=== PATIENT | female | born 1930 | race Caucasian/White ===

== ENCOUNTER 2020-06-15 14:34 | Inpatient (IN) | payer MEDICARE, MEDICAID ==
[~2020-06-15] VITALS: Ht 154.9 cm; Wt 42.0 kg
[2020-06-15] MEDS ORDERED: SODIUM CHLORIDE 0.9% 1000ML BAG (SEPSIS BOLUS) IV ONE (15:45)
[2020-06-15 16:06] LABS: BASOPHILS % 0.5 % (0.0-2.0); EOSINOPHILS % 0.1 % (0.0-5.0); HEMATOCRIT. 24.5 % (36.0-48.0); HEMOGLOBIN. 8.1 g/dL (12.0-16.0); MEAN CORPUSCULAR HEMOGLOBIN 30.8 pg (28.0-32.0); MEAN CORPUSCULAR VOLUME 92.8 fL (81.0-99.0); MEAN PLATELET VOLUME 8.2 fl (7.4-10.4); MONOCYTES % 10.2 % (2.0-8.0); NEUTROPHILS % 78.2 % (40.0-76.0); PLATELET 154 x1000/uL (130-400); RED BLOOD CELL COUNT 2.64 mill/uL (4.2-5.4); RED CELL DISTRIBUTION WIDTH 15.2 % (11.6-14.6)
[2020-06-15 16:15] LABS: INR 1.1; PROTHROMBIN TIME 12.2 sec (9.6-11.0)
[2020-06-15 16:30] LABS: CHLORIDE 96 mEq/L (98-107)
[2020-06-15 16:37] LABS: C REACTIVE PROTEIN QUANT 8.4 mg/L (0.0-3.0)
[2020-06-15 16:40] LABS: CREATINE KINASE 26 IU/L (26-192)
[2020-06-15] MEDS ORDERED: ASPIRIN 81MG EC TABLET PO ONE (17:15)
[2020-06-15] MEDS ORDERED: ACETAMINOPHEN 325MG TABLET PO PRN (18:45)
[2020-06-15] MEDS ORDERED: ONDANSETRON HCL 4MG/2ML INJ IV PRN (18:45)
[2020-06-15] MEDS ORDERED: ENOXAPARIN 30MG/0.3ML SYR SUBCUT SCH (19:00)
[2020-06-15 23:30] VITALS: BP 131/77
[2020-06-16] MEDS ORDERED: DEXTROSE 50% WATER 50ML SYRINGE IV PRN (00:15)
[2020-06-16] MEDS ORDERED: FURO40TA5 PO (00:48)
[2020-06-16] MEDS ORDERED: METO25TA6 PO (00:48)
[2020-06-16] MEDS ORDERED: ATOR40TA70 PO (00:48)
[2020-06-16] MEDS ORDERED: LEVO25TA2 PO (00:48)
[2020-06-16] MEDS ORDERED: ASPI-1497 PO (00:48)
[2020-06-16] MEDS ORDERED: ERGO400C PO (00:48)
[2020-06-16] MEDS ORDERED: DEXL60CA3 PO (00:48)
[2020-06-16] MEDS ORDERED: MULT-1116 PO (00:48)
[2020-06-16 04:00] VITALS: BP 130/76
[2020-06-16] MEDS: INSULIN LISPRO 100 UNITS/ML SUBCUT SCH ×4 (06:17→20:26)
[2020-06-16] MEDS: BLOOD SUGAR DIAGNOSTIC STRIP TEST SCH ×4 (06:17→20:26)
[2020-06-16 08:00] VITALS: BP 144/85
[2020-06-16 09:07] LABS: CHLORIDE 96 mEq/L (98-107)
[2020-06-16 09:16] LABS: TOTAL IRON BINDING CAPACITY 312 ug/dL (250-450)
[2020-06-16 09:55] LABS: BASOPHILS % 0.5 % (0.0-2.0); EOSINOPHILS % 0.1 % (0.0-5.0); HEMATOCRIT. 26.5 % (36.0-48.0); HEMOGLOBIN. 8.5 g/dL (12.0-16.0); LYMPHOCYTES % 13.3 % (20.0-50.0); MEAN CORPUSCULAR HEMOGLOBIN 30.2 pg (28.0-32.0); MEAN CORPUSCULAR VOLUME 93.7 fL (81.0-99.0); MONOCYTES % 6.7 % (2.0-8.0); NEUTROPHILS % 79.4 % (40.0-76.0); PLATELET 167 x1000/uL (130-400); RED BLOOD CELL COUNT 2.83 mill/uL (4.2-5.4); RED CELL DISTRIBUTION WIDTH 15.3 % (11.6-14.6)
[2020-06-16 12:00] VITALS: BP 103/63
[2020-06-16 16:00] VITALS: BP 139/80
[2020-06-16] MEDS: IRON SUCROSE COMPLEX 100 MG/5 ML ML IV SCH (16:05)
[2020-06-16] MEDS: POLYETHYLENE GLYCOL 3350 (17GM) 1 DOSE PACK PO SCH (16:54)
[2020-06-16] MEDS: DOCUSATE SODIUM 100MG CAPSULE PO SCH (16:54)
[2020-06-16 20:00] VITALS: BP 96/72
[2020-06-16] MEDS: SENNOSIDES/DOCUSATE SOD 8.6/50MG TABLET PO SCH (20:30)
[2020-06-16] MEDS: PANTOPRAZOLE SODIUM 40 MG/VIAL IV SCH (20:30)
[2020-06-17] VITALS: BP 101/80
[2020-06-17 04:00] VITALS: BP 92/60
[2020-06-17] MEDS: BLOOD SUGAR DIAGNOSTIC STRIP TEST SCH ×4 (05:38→20:04)
[2020-06-17] MEDS: INSULIN LISPRO 100 UNITS/ML SUBCUT SCH ×4 (05:38→20:03)
[2020-06-17 08:00] VITALS: BP 122/81
[2020-06-17] MEDS: LEVOTHYROXINE SODIUM 25MCG TABLET PO SCH (08:45)
[2020-06-17] MEDS: POLYETHYLENE GLYCOL 3350 (17GM) 1 DOSE PACK PO SCH (09:00)
[2020-06-17] MEDS: DOCUSATE SODIUM 100MG CAPSULE PO SCH ×2 (09:00→16:25)
[2020-06-17 09:01] LABS: INR 1.1; PROTHROMBIN TIME 11.9 sec (9.6-11.0)
[2020-06-17] MEDS: DEXT 5%/0.9% NACL 1,000 ML IV SCH (09:10)
[2020-06-17] MEDS: PANTOPRAZOLE SODIUM 40 MG/VIAL IV SCH ×2 (09:10→20:04)
[2020-06-17 09:44] LABS: FOLIC ACID (FOLATE) SERUM >20 ng/mL ng/mL (>5.38)
[2020-06-17 09:54] LABS: VITAMIN B12 SERUM 1078 pg/mL (211-911)
[2020-06-17 10:09] LABS: BASOPHILS % 0.7 % (0.0-2.0); EOSINOPHILS % 0.3 % (0.0-5.0); HEMATOCRIT. 27.3 % (36.0-48.0); HEMOGLOBIN. 8.7 g/dL (12.0-16.0); LYMPHOCYTES % 13.3 % (20.0-50.0); MEAN CORPUSCULAR HEMOGLOBIN 29.8 pg (28.0-32.0); MEAN PLATELET VOLUME 8.5 fl (7.4-10.4); MONOCYTES % 8.5 % (2.0-8.0); NEUTROPHILS % 77.2 % (40.0-76.0); PLATELET 175 x1000/uL (130-400); RED BLOOD CELL COUNT 2.94 mill/uL (4.2-5.4); RED CELL DISTRIBUTION WIDTH 15.7 % (11.6-14.6)
[2020-06-17 12:00] VITALS: BP 129/79
[2020-06-17] MEDS ORDERED: FENTANYL CITRATE/PF 50MCG/ML 2ML VIAL ONE (12:18)
[2020-06-17] MEDS ORDERED: MIDAZOLAM HCL 5 MG/5 ML VIAL ONE (12:18)
[2020-06-17] MEDS ORDERED: MIDAZOLAM HCL 2 MG/2 ML VIAL IV NR (12:35)
[2020-06-17] MEDS: IRON SUCROSE COMPLEX 100 MG/5 ML ML IV SCH (14:35)
[2020-06-17 16:00] VITALS: BP 106/68
[2020-06-17 20:00] VITALS: BP 108/76
[2020-06-17] MEDS: SENNOSIDES/DOCUSATE SOD 8.6/50MG TABLET PO SCH (20:04)
[2020-06-18] VITALS: BP 110/79
[2020-06-18] MEDS: DEXT 5%/0.9% NACL 1,000 ML IV SCH ×2 (01:32→17:53)
[2020-06-18 04:00] VITALS: BP 119/80
[2020-06-18] MEDS: BLOOD SUGAR DIAGNOSTIC STRIP TEST SCH ×4 (05:44→20:25)
[2020-06-18] MEDS: INSULIN LISPRO 100 UNITS/ML SUBCUT SCH ×4 (05:44→20:25)
[2020-06-18] MEDS: LEVOTHYROXINE SODIUM 25MCG TABLET PO SCH (05:50)
[2020-06-18 08:00] VITALS: BP_SYST 108; BP_SYST 111; BP_DIAS 68; BP_DIAS 73
[2020-06-18] MEDS: POLYETHYLENE GLYCOL 3350 (17GM) 1 DOSE PACK PO SCH ×2 (09:00→09:54)
[2020-06-18] MEDS: DOCUSATE SODIUM SUGAR FREE 100MG/10ML UDC PO SCH ×2 (09:45→17:00)
[2020-06-18] MEDS: PANTOPRAZOLE SODIUM 40 MG/VIAL IV SCH ×2 (09:55→20:28)
[2020-06-18 09:56] LABS: BASOPHILS % 0.7 % (0.0-2.0); EOSINOPHILS % 0.2 % (0.0-5.0); HEMOGLOBIN. 8.4 g/dL (12.0-16.0); MEAN CORPUSCULAR HEMOGLOBIN 30.2 pg (28.0-32.0); MEAN CORPUSCULAR VOLUME 93.8 fL (81.0-99.0); MEAN PLATELET VOLUME 8.2 fl (7.4-10.4); MONOCYTES % 8.5 % (2.0-8.0); NEUTROPHILS % 77.6 % (40.0-76.0); PLATELET 164 x1000/uL (130-400); RED BLOOD CELL COUNT 2.77 mill/uL (4.2-5.4)
[2020-06-18 12:00] VITALS: BP 108/73
[2020-06-18 14:11] LABS: A/G RATIO 1.1 (0.7-1.7); ALPHA-1-GLOBULIN 0.2 g/dL (0.0-0.4); ALPHA-2-GLOBULIN 0.7 g/dL (0.4-1.0); BETA GLOBULIN 0.7 g/dL (0.7-1.3); GAMMA GLOBULINS 1.1 g/dL (0.4-1.8); GLOBULIN TOTAL 2.7 g/dL (2.2-3.9); M-SPIKE Not Observed g/dL (Not Observed); TOTAL PROTEIN SERUM 5.7 g/dL (6.0-8.5)
[2020-06-18] MEDS: IRON SUCROSE COMPLEX 100 MG/5 ML ML IV SCH (15:36)
[2020-06-18 16:00] VITALS: BP 124/73
[2020-06-18] MEDS: APIXABAN 2.5 MG TABLET PO SCH (17:51)
[2020-06-18 20:00] VITALS: BP 102/65
[2020-06-18] MEDS: SENNOSIDES/DOCUSATE SOD 8.6/50MG TABLET PO SCH (20:25)
[2020-06-19] VITALS: BP 109/65
[2020-06-19 04:00] VITALS: BP 101/63
[2020-06-19] MEDS: INSULIN LISPRO 100 UNITS/ML SUBCUT SCH ×4 (06:16→20:36)
[2020-06-19] MEDS: BLOOD SUGAR DIAGNOSTIC STRIP TEST SCH ×4 (06:16→20:36)
[2020-06-19] MEDS: LEVOTHYROXINE SODIUM 25MCG TABLET PO SCH (06:16)
[2020-06-19 08:00] VITALS: BP 103/68
[2020-06-19] MEDS: DOCUSATE SODIUM SUGAR FREE 100MG/10ML UDC PO SCH ×2 (09:00→17:00)
[2020-06-19] MEDS: APIXABAN 2.5 MG TABLET PO SCH ×2 (09:19→17:21)
[2020-06-19] MEDS: PANTOPRAZOLE SODIUM 40 MG/VIAL IV SCH ×2 (09:19→20:37)
[2020-06-19 12:00] VITALS: BP 124/82
[2020-06-19 13:11] LABS: BASOPHILS % 0.6 % (0.0-2.0); EOSINOPHILS % 0.7 % (0.0-5.0); HEMATOCRIT. 30.3 % (36.0-48.0); HEMOGLOBIN. 9.7 g/dL (12.0-16.0); LYMPHOCYTES % 22.4 % (20.0-50.0); MEAN CORPUSCULAR HEMOGLOBIN 30.9 pg (28.0-32.0); MEAN CORPUSCULAR VOLUME 96.8 fL (81.0-99.0); MEAN PLATELET VOLUME 9.9 fl (7.4-10.4); NEUTROPHILS % 67.3 % (40.0-76.0); PLATELET 244 x1000/uL (130-400); RED BLOOD CELL COUNT 3.13 mill/uL (4.2-5.4); RED CELL DISTRIBUTION WIDTH 16.4 % (11.6-14.6)
[2020-06-19 13:21] LABS: CHLORIDE 108 mEq/L (98-107)
[2020-06-19 16:00] VITALS: BP 141/81
[2020-06-19] MEDS: IRON SUCROSE COMPLEX 100 MG/5 ML ML IV SCH (17:21)
[2020-06-19 20:00] VITALS: BP 104/68
[2020-06-19] MEDS: SENNOSIDES/DOCUSATE SOD 8.6/50MG TABLET PO SCH (20:36)
[2020-06-19 22:54] LABS: CLARITY URINE CLEAR (CLEAR); COLOR URINE DARK YELLOW (YELLOW); KETONES URINE NEGATIVE (NEGATIVE); LEUKOCYTE ESTERASE URINE TRACE (NEGATIVE); NITRITE URINE NEGATIVE (NEGATIVE); OCCULT BLOOD URINE NEGATIVE (NEGATIVE); PROTEIN URINE NEGATIVE (NEGATIVE); SPECIFIC GRAVITY URINE 1.016 (1.005-1.030); UROBILINOGEN URINE 0.2 E.U./dL (0.2-1.0)
[2020-06-20] VITALS: BP 104/72
[2020-06-20 04:00] VITALS: BP 103/74
[2020-06-20] MEDS: BLOOD SUGAR DIAGNOSTIC STRIP TEST SCH ×4 (06:01→21:00)
[2020-06-20] MEDS: LEVOTHYROXINE SODIUM 25MCG TABLET PO SCH (06:01)
[2020-06-20] MEDS: INSULIN LISPRO 100 UNITS/ML SUBCUT SCH ×4 (06:26→21:00)
[2020-06-20 08:00] VITALS: BP 114/72
[2020-06-20] MEDS: APIXABAN 2.5 MG TABLET PO SCH ×2 (08:29→17:45)
[2020-06-20] MEDS: DOCUSATE SODIUM SUGAR FREE 100MG/10ML UDC PO SCH ×3 (08:29→17:00)
[2020-06-20] MEDS: PANTOPRAZOLE SODIUM 40 MG/VIAL IV SCH ×2 (08:29→21:55)
[2020-06-20 12:00] VITALS: BP 108/74
[2020-06-20] MEDS ORDERED: CEFTRIAXONE 1,000 MG in DEXTROSE 5% WATER 50 ML IV SCH (14:00)
[2020-06-20] MEDS: IRON SUCROSE COMPLEX 100 MG/5 ML ML IV SCH (15:22)
[2020-06-20 16:00] VITALS: BP 106/70
[2020-06-20 20:00] VITALS: BP 94/67
[2020-06-20] MEDS: SENNOSIDES/DOCUSATE SOD 8.6/50MG TABLET PO SCH (21:56)
[2020-06-21] VITALS: BP 119/82
[2020-06-21 04:00] VITALS: BP 110/86
[2020-06-21] MEDS ORDERED: SODIUM CHLORIDE 0.45% 1,000 ML IV SCH (05:00)
[2020-06-21] MEDS: BLOOD SUGAR DIAGNOSTIC STRIP TEST SCH ×4 (06:39→21:29)
[2020-06-21] MEDS: LEVOTHYROXINE SODIUM 25MCG TABLET PO SCH (06:53)
[2020-06-21] MEDS: INSULIN LISPRO 100 UNITS/ML SUBCUT SCH ×4 (07:15→21:00)
[2020-06-21 07:53] LABS: EOSINOPHILS % 0.8 % (0.0-5.0); HEMATOCRIT. 28.9 % (36.0-48.0); LYMPHOCYTES % 23.4 % (20.0-50.0); MEAN CORPUSCULAR HEMOGLOBIN 29.7 pg (28.0-32.0); MEAN CORPUSCULAR VOLUME 95.4 fL (81.0-99.0); MEAN PLATELET VOLUME 8.2 fl (7.4-10.4); MONOCYTES % 7.9 % (2.0-8.0); NEUTROPHILS % 66.9 % (40.0-76.0); PLATELET 197 x1000/uL (130-400); RED BLOOD CELL COUNT 3.03 mill/uL (4.2-5.4); RED CELL DISTRIBUTION WIDTH 16.2 % (11.6-14.6)
[2020-06-21 08:00] VITALS: BP 116/71
[2020-06-21] MEDS: APIXABAN 2.5 MG TABLET PO SCH ×2 (09:08→16:56)
[2020-06-21] MEDS: PANTOPRAZOLE SODIUM 40 MG/VIAL IV SCH (09:08)
[2020-06-21] MEDS: DOCUSATE SODIUM SUGAR FREE 100MG/10ML UDC PO SCH ×2 (09:09→16:56)
[2020-06-21] MEDS ORDERED: DIGOXIN 500MCG/2ML AMP IV NR (11:30)
[2020-06-21 12:00] VITALS: BP 123/83
[2020-06-21] MEDS ORDERED: DIGOXIN 250MCG TABLET PO NR (12:15)
[2020-06-21] MEDS: FERROUS SULFATE 325MG TABLET PO SCH ×2 (12:33→16:56)
[2020-06-21] MEDS: ASCORBIC ACID 500 MG TABLET PO SCH (12:33)
[2020-06-21] MEDS: LEVOFLOXACIN 250MG TABLET PO SCH (12:35)
[2020-06-21 16:00] VITALS: BP 122/76
[2020-06-21 20:00] VITALS: BP 120/80
[2020-06-21] MEDS: PANTOPRAZOLE 40MG DR TABLET PO SCH (20:41)
[2020-06-21] MEDS: SENNOSIDES/DOCUSATE SOD 8.6/50MG TABLET PO SCH (20:42)
[2020-06-22] VITALS: BP 120/80
[2020-06-22 04:00] VITALS: BP 122/61
[2020-06-22] MEDS: LEVOTHYROXINE SODIUM 25MCG TABLET PO SCH (06:23)
[2020-06-22] MEDS: BLOOD SUGAR DIAGNOSTIC STRIP TEST SCH ×4 (06:25→20:37)
[2020-06-22] MEDS: INSULIN LISPRO 100 UNITS/ML SUBCUT SCH ×4 (06:25→20:37)
[2020-06-22] MEDS: PANTOPRAZOLE 40MG DR TABLET PO SCH ×2 (06:26→20:36)
[2020-06-22 08:00] VITALS: BP 110/64
[2020-06-22 08:06] LABS: BASOPHILS % 0.9 % (0.0-2.0); EOSINOPHILS % 0.8 % (0.0-5.0); HEMATOCRIT. 29.3 % (36.0-48.0); HEMOGLOBIN. 9.2 g/dL (12.0-16.0); LYMPHOCYTES % 17.1 % (20.0-50.0); MEAN CORPUSCULAR HEMOGLOBIN 30.4 pg (28.0-32.0); MEAN CORPUSCULAR VOLUME 96.2 fL (81.0-99.0); MEAN PLATELET VOLUME 8.6 fl (7.4-10.4); MONOCYTES % 9.2 % (2.0-8.0); PLATELET 197 x1000/uL (130-400); RED BLOOD CELL COUNT 3.04 mill/uL (4.2-5.4); RED CELL DISTRIBUTION WIDTH 16.9 % (11.6-14.6)
[2020-06-22] MEDS: DOCUSATE SODIUM SUGAR FREE 100MG/10ML UDC PO SCH ×2 (08:36→17:42)
[2020-06-22] MEDS: APIXABAN 2.5 MG TABLET PO SCH ×2 (08:36→17:42)
[2020-06-22] MEDS: FERROUS SULFATE 325MG TABLET PO SCH ×3 (08:36→17:42)
[2020-06-22] MEDS: ASCORBIC ACID 500 MG TABLET PO SCH (08:36)
[2020-06-22 12:00] VITALS: BP 147/66
[2020-06-22] MEDS: LEVOFLOXACIN 250MG TABLET PO SCH (14:10)
[2020-06-22 16:00] VITALS: BP 122/47
[2020-06-22] MEDS ORDERED: METO-539 PO (16:05)
[2020-06-22] MEDS ORDERED: LISI2.5T47 MT (16:05)
[2020-06-22] MEDS: SENNOSIDES/DOCUSATE SOD 8.6/50MG TABLET PO SCH (20:36)
[2020-06-22] MEDS ORDERED: METOPROLOL TARTRATE 25MG TABLET PO SCH (21:00)
== END 2020-06-22 22:50 | DRG 812 ==
LOC: ER 14:34 → EDBEDREQSVC 17:22 → EDBEDREQTM 17:22 → EDBEDREQ 17:22 → 5WST 17:38 → EDBEDREQTM 17:41 → EDBEDREQ 17:41 → SUPCPDRO 18:32 → ENRESERV 21:29
PROVIDERS: ADMIT Internal Medicine Nephrology; ATTEND Internal Medicine Nephrology
PROC: 0DB68ZX Excision of Stomach, Via Natural or Artificial Opening Endoscopic, Diagnostic (ICD-10-PCS; principal; 2020-06-17)
DX: D62 Acute posthemorrhagic anemia (principal); E87.1 Hypo-osmolality and hyponatremia; Z68.1 Body mass index [BMI] 19.9 or less, adult; E44.0 Moderate protein-calorie malnutrition; K29.70 Gastritis, unspecified, without bleeding; E78.00 Pure hypercholesterolemia, unspecified; E78.5 Hyperlipidemia, unspecified; I11.0 Hypertensive heart disease with heart failure; I25.10 Atherosclerotic heart disease of native coronary artery without angina pectoris; I48.0 Paroxysmal atrial fibrillation; I50.9 Heart failure, unspecified; K59.00 Constipation, unspecified; R77.8 Other specified abnormalities of plasma proteins; E05.90 Thyrotoxicosis, unspecified without thyrotoxic crisis or storm; R50.9 Fever, unspecified; R19.5 Other fecal abnormalities; R53.81 Other malaise; R26.9 Unspecified abnormalities of gait and mobility; M21.961 Unspecified acquired deformity of right lower leg; M21.962 Unspecified acquired deformity of left lower leg; Z86.16 Personal history of COVID-19; Z82.49 Family history of ischemic heart disease and other diseases of the circulatory system; Z90.3 Acquired absence of stomach [part of]; Z98.84 Bariatric surgery status; Z91.012 Allergy to eggs; Z20.822 Contact with and (suspected) exposure to COVID-19
CPT/HCPCS: 36415; 71045; 80048; 80053; 80061; 81003; 82270; 82550; 82607; 82728; 82746; 82962; 83036; 83540; 83550; 83605; 83615; 83930; 84145; 84155; 84165; 84443; 84484; 85025; 85044; 85384; 86140; 86850; 86900; 87426; 88304; 93005; 93306; 93970; 97116; 97162; 97166; 97530; 97535; 99285; A6261; C1893; C9113; J0696; J1650; J1815; J2250; J3010; J7030; J7042; J7060